=== PATIENT | female | born 1950 | race African-American/Black ===

== ENCOUNTER 2016-06-08 12:08 | Inpatient (IN) | payer MEDICARE, OTHER ==
[~2016-06-08] VITALS: Ht 165.1 cm; Wt 104.3 kg
[~2016-06-08 12:08] MED LIST: FOLIC ACID1 MG ORAL; FUROSEMIDE20 M1 ORAL; LYRICA75 M1 ORAL; MORPHINE IR15 MG ORAL; MORPHINE SULFAT60 M1 PO; MULTI-VITAMIN1 EACH PO; NIFEDIPINE ER30 MG ORAL; PANTOPRAZOLE SO40 MG ORAL; POTASSIUM CHLO20 ME3 PO; SIMVASTATIN40 MG ORAL; ZOLPIDEM TARTRA10 MG ORAL
[2016-06-08 12:46] LABS: APPEARANCE,URINE CLEAR; KETONES,URINE NEGATIVE (NEGATIVE); LEUKOCYTE ESTERASE ,URINE NEGATIVE (NEGATIVE); NITRITE,URINE NEGATIVE (NEGATIVE); PH,URINE 7 (4.5-8.0); PROTEIN,URINE NEGATIVE (NEGATIVE); UROBILINOGEN,URINE NORMAL MG/DL (0.0-1.0)
--- NOTE | 2016-06-08 12:50 | Diagnostic Imaging Report ---
Indications: Chest pain Technique: Portable AP chest Findings: Comparison: 06/26/15 Cardiac silhouette remains upper limits of normal in size. Pulmonary vasculature remains within normal limits. Lungs and pleura remain clear.. narrowing of the left glenohumeral joint again noted with marginal osteophyte formation. IMPRESSION: No evidence of acute cardiopulmonary disease, unchanged Left glenohumeral degenerative arthropathy
[2016-06-08 13:14] LABS: BASOPHILS % (AUTO) 0.8 % (0.0-2.0); EOSINOPHILS % (AUTO) 1.8 % (0.0-3.0); LYMPHOCYTES % (AUTO) 24.7 % (20.0-45.0); MEAN CORPUSCULAR HEMOGLOBIN 25.3 PG (27.0-31.0); MEAN CORPUSCULAR HGB CONC 30.3 G/DL (32.0-36.0); MEAN CORPUSCULAR VOLUME 84 FL (80-99); MEAN PLATELET VOLUME 7.7 FL (6.5-10.1); MONOCYTES % (AUTO) 5.6 % (1.0-10.0); NEUTROPHILS % (AUTO) 67.2 % (45.0-75.0); PLATELET COUNT 299 K/UL (150-450); RED BLOOD COUNT 4.14 M/UL (4.20-5.40); RED CELL DISTRIBUTION WIDTH 15.8 % (11.6-14.8); WHITE BLOOD COUNT 10.1 K/UL (4.8-10.8)
[2016-06-08 13:19] VITALS: BP 162/58
[2016-06-08 13:27] LABS: TROPONIN I < 0.30 ng/mL (<=0.30)
[2016-06-08 13:28] LABS: ALANINE AMINOTRANSFERASE 34 U/L (3-33); ALBUMIN/GLOBULIN RATIO 0.9 (1.0-2.7); ANION GAP 12 (5-15); ASPARTATE AMINO TRANSFERASE 43 U/L (5-40); CALCIUM 8.7 mg/dL (8.6-10.2); CARBON DIOXIDE 28 mEQ/L (20-30); CHLORIDE 100 mEQ/L (98-107); CREATININE 0.8 mg/dL (0.5-0.9); GLOMERULAR FILTRATION RATE > 60 mL/min (>60); HEMOLYSIS 29; POTASSIUM 4.3 mEQ/L (3.4-4.9); SODIUM 140 mEQ/L (135-145); TOTAL PROTEIN 7.5 g/dL (6.6-8.7)
[2016-06-08 13:39] LABS: CKMB < 1.5 ng/mL (< 3.8)
[2016-06-08 15:24] VITALS: BP_SYST 170; BP_SYST 178; BP_DIAS 67; BP_DIAS 73
[2016-06-08] MEDS ORDERED: Nitroglycerin Subl 0.4mg tab (Bottle Of 25) SL PRN (15:30)
--- NOTE | 2016-06-08 16:47 | Emergency Room Report ---
History of Present Illness General Chief Complaint: Chest Pain Source: Patient Present Illness HPI 66-year-old female presents ED complaining of chest pain. States chest pain started approximately one hour prior to arrival. Pressure-like, 7/10, nonradiating. No diarrhea relieving factors. Denies shortness of breath. Took nitroglycerin with some relief, given aspirin and nitroglycerin by EMS with chest pain improved. Denies any chest pain upon arrival. Notes extensive cardiac history including MA in the past. PMD is Dr. Gutierres. I fevers or chills. No aggravating or relieving factors. Denies any other associated symptoms Allergies: Coded Allergies: AMOXICILLIN (Verified Allergy, Mild, 06/26/15) HALOPERIDOL (Unverified Allergy, Unknown, 06/26/15) PENICILLIN G (Unverified Allergy, Unknown, 06/26/15) SULFA (SULFONAMIDE ANTIBIOTICS) (Unverified Allergy, Unknown, 06/26/15) Uncoded Allergies: PENECILLIN (Allergy, Unknown, 06/08/16) SULFA (Allergy, Unknown, 06/08/16) Patient History Past Medical History: HTN, MA Past Surgical History: none Pertinent Family History: none Social History: Denies: alcohol use, drug use, smoking Now: No Immunizations: UTD Reviewed Nursing Documentation: PMH: Agreed, PSxH: Agreed Nursing Documentation-PMH Past Medical History: No History, Except For Hx Cardiac Problems: Yes - MA year unspecified Hx Hypertension: Yes Hx Pacemaker: No - LUPUS Review of Systems All Other Systems: negative except mentioned in HPI Physical Exam Vital Signs Date Time Temp Pulse Resp B/P Pulse Ox O2 Delivery O2 Flow Rate FiO2 06/08/16 12:00 55 16 152/94 98 Room Air Sp02 EP Interpretation: reviewed, normal General Appearance: no apparent distress, alert, GCS 15, non-toxic Head: normocephalic, atraumatic Eyes: bilateral eye PERRL, bilateral eye normal inspection ENT: hearing grossly normal, normal pharynx, no angioedema, normal voice Neck: full range of motion, supple/symm/no masses Respiratory: chest non-tender, lungs clear, normal breath sounds, speaking full sentences Cardiovascular #1: regular rate, rhythm, no edema Cardiovascular #2: 2+ carotid (R), 2+ carotid (L), 2+ radial (R), 2+ radial (L) , 2+ dorsalis pedis (R), 2+ dorsalis pedis (L) Gastrointestinal: normal bowel sounds, non tender, soft, non-distended, no guarding, no rebound Rectal: deferred Genitourinary: normal inspection, no CVA tenderness Musculoskeletal: back normal, gait/station normal, normal range of motion, non- tender Neurologic: alert, oriented x3, responsive, motor strength/tone normal, sensory intact, speech normal Psychiatric: judgement/insight normal, memory normal, mood/affect normal, no suicidal/homicidal ideation Reflexes: 3+ bicep (R), 3+ bicep (L), 3+ tricep (R), 3+ tricep (L), 3+ knee (R) , 3+ knee (L) Skin: normal color, no rash, warm/dry, well hydrated Lymphatic: no adenopathy Medical Decision Making Diagnostic Impression: Primary Impression: ACS (acute coronary syndrome) ER Course Hospital Course 66-year-old female presents ED complaining of chest pain, improved with asa/ nitro Differential diagnoses include: MA/unstable angina, contusion, muscle strain, PTX, rib fracture Clinical course Patient placed on stretcher. on monitoring coordinator. After initial history and physical I ordered labs, EKG, chest x-ray, IVFs labs reviewed- no leukocytosis, hb/hct stable, electrolyts ok, troponins negative EKG-normal sinus rhythm, no acute ischemic changes Chest x-ray- no acute process On reassessment patient developed some chest pain. Repeat EKG showed no change. Patient was given nitroglycerin with some improvement Case discussed with Dr. Marinelli and he agreed to accept the patient to his service for further care and support I. I feel this is a highly complex case requiring extensive working including EKG/Rhythm strip, Xray/CT/US, Blood/urine lab work, repeat exams while in ED, and administration of strong opiates/narcotics for pain control, admission to hospital or close patient follow up. Diagnosis - ACS admitted to telemetry in serious condition Labs Test 06/08/16 12:35 06/08/16 12:50 Urine Color Yellow Urine Appearance Clear Urine pH 7 (4.5-8.0) Urine Specific [place] 1.005 (1.005-1.035) Urine Protein Negative (NEGATIVE) Urine Glucose (UA) Negative (NEGATIVE) Urine Ketones Negative (NEGATIVE) Urine Occult Blood Negative (NEGATIVE) Urine Nitrite Negative (NEGATIVE) Urine Bilirubin Negative (NEGATIVE) Urine Urobilinogen Normal MG/DL (0.0-1.0) Urine Leukocyte Esterase Negative (NEGATIVE) White Blood Count 10.1 K/UL (4.8-10.8) Red Blood Count 4.14 M/UL (4.20-5.40) Hemoglobin 10.5 G/DL (12.0-16.0) Hematocrit 34.6 % (37.0-47.0) Mean Corpuscular Volume 84 FL (80-99) Mean Corpuscular Hemoglobin 25.3 PG (27.0-31.0) Mean Corpuscular Hemoglobin Concent 30.3 G/DL (32.0-36.0) Red Cell Distribution Width 15.8 % (11.6-14.8) Platelet Count 299 K/UL (150-450) Mean Platelet Volume 7.7 FL (6.5-10.1) Neutrophils (%) (Auto) 67.2 % (45.0-75.0) Lymphocytes (%) (Auto) 24.7 % (20.0-45.0) Monocytes (%) (Auto) 5.6 % (1.0-10.0) Eosinophils (%) (Auto) 1.8 % (0.0-3.0) Basophils (%) (Auto) 0.8 % (0.0-2.0) Sodium Level 140 mEQ/L (135-145) Potassium Level 4.3 mEQ/L (3.4-4.9) Chloride Level 100 mEQ/L (98-107) Carbon Dioxide Level 28 mEQ/L (20-30) Anion Gap 12 (5-15) Blood Urea Nitrogen 5 mg/dL (7-23) Creatinine 0.8 mg/dL (0.5-0.9) Estimat Glomerular Filtration Rate > 60 mL/min (>60) Glucose Level 109 mg/dL (74-106) Calcium Level 8.7 mg/dL (8.6-10.2) Total Bilirubin 0.3 mg/dL (0.0-1.2) Aspartate Amino Transf (AST/SGOT) 43 U/L (5-40) Alanine Aminotransferase (ALT/SGPT) 34 U/L (3-33) Alkaline Phosphatase 107 U/L (35-104) Total Creatine Kinase 103 U/L (26-140) Creatine Kinase MB < 1.5 ng/mL (< 3.8) Creatine Kinase MB Relative Index Troponin I < 0.30 ng/mL (<=0.30) Pro-B-Type Natriuretic Peptide 150 pg/mL (0-125) Total Protein 7.5 g/dL (6.6-8.7) Albumin 3.7 g/dL (3.5-5.2) Globulin 3.8 g/dL Albumin/Globulin Ratio 0.9 (1.0-2.7) EKG Diagnostic Results Rate: normal Rhythm: NSR ST Segments: no acute changes ASA given to the pt in ED: No - given by ems Rhythm Strip Diag. Results EP Interpretation: yes Rhythm: NSR, no PVC's, no ectopy Chest X-Ray Diagnostic Results EP Interpretation: No Findings: no consolidation, no effusion, no pneumothorax, no acute cardiopulmonary disease Number of Views: 1 Last Vital Signs Date Time Temp Pulse Resp B/P Pulse Ox O2 Delivery O2 Flow Rate FiO2 06/08/16 15:26 178/73 06/08/16 15:24 60 11 97 Room Air Status: improved Disposition: ADMITTED INPATIENT Condition: Serious Referrals: PRETTY VENTURA (PCP) KASIE MAS M.D. Jun 08, 2016 16:47
[2016-06-08 17:27] VITALS: BP 160/65
--- NOTE | 2016-06-09 08:43 | Discharge Summary ---
Discharge Summary Hospital Course Date of Admission Jun 08, 2016 at 13:19 Date of Discharge Jun 08, 2016 at 19:00 Admitting Diagnosis ACS HPI Jacki Purvis is a 66 year old female who was admitted on Jun 08, 2016 at 13:19 for Acute Coronary Syndrome Hospital Course dc summary#[id number] Discharge Discharge Disposition Patient signed AMA Discharge Diagnoses: Discharge Instructions Discharge Instructions Special Instructions I have been assigned to complete a D/C Summary on this account. I was not involved in the patient management Mellisa Cevallos NP ([facility]) Jun 09, 2016 08:43
--- NOTE | 2016-06-10 00:39 | Discharge Summary 2 SIG ---
DATE OF ADMISSION: 06/08/2016 DATE OF SIGNING AGAINST MEDICAL ADVISE: 06/08/2016 REASON FOR HOSPITALIZATION: 66 years old female came to emergency room complaining of the chest pain. She stated that the pain started about 1 hour prior to arrival to the emergency room. She described chest pain as a pressure like, nonradiating , 7/10 on a scale of 1 to 10. She denied shortness of breath. She took nitroglycerin with some relief. She was given aspirin and nitroglycerin by paramedics and chest pain improved. She denied chest pain upon arrival. She had extensive cardiac history including myocardial infarction in the past. Denied fever. Denied chills. No nausea. No abdominal pain. No diarrhea. History of hypertension and myocardial infarction. Workup in the emergency room revealed negative troponin and no leukocytosis. Stable hemoglobin and hematocrit. Stable electrolytes. EKG showed normal sinus rhythm. No acute ischemic changes. The patient was placed on blood bank laboratory professional. Chest x-ray revealed no acute cardiopulmonary disease. During reassessment by ED doctor, the patient again developed some chest pain. Repeated EKG again revealed no ischemic changes. The patient was given nitroglycerin on reassessment with some improvement. Due to the prior history of myocardial infarction and hypertension, the patient was admitted to telemetry for further management. ADMITTING DIAGNOSES: 1. Chest pain, 2. Rule out acute coronary syndrome. 3. Hypertension. 4. History of myocardial infarction. HOSPITAL STAY: The patient was brought on the telemetry floor at 1900 hours. The patient decided to sign against medical advice. was at the bedside. The patient stated that she wants to go to [facility]. She did not want to wait for the doctor to call back. The risks and consequences of signing against medical advice were described to the patient. The patient nevertheless signed the form. At the time of signing the form, she denied chest pain, shortness of breath, and was symptoms free. The patient left after signing against medical advice form , accompanied by her . FINAL DIAGNOSES: 1. Chest pain, 2. Rule out acute coronary syndrome. 2. Hypertension. 3. History of myocardial infarction. Pagiel Shechter, M.D. I have been assigned to dictate discharge summary on this account and I was not involved in the patient's management. Mellisa HobbsRochester General Hospitalkarl N.PMilli DR: OSBALDO JOB#: [id number] CC: ROXANN
--- NOTE | 2016-06-10 23:36 | Cardiology Report ---
APPROVED REPORT EKG Measurement Heart [id number] Marked sinus bradycardia Minimal voltage criteria for LVH, may be normal variant Cannot rule out Anterior infarct, age undetermined Abnormal ECG
== END 2016-06-08 19:00 | disposition left against medical advice (07) | DRG 311 ==
LOC: EDBD 12:08 → EMR 13:15 → 2E 13:19 → EMR 17:28
DX: I24.9 Acute ischemic heart disease, unspecified (principal); M32.9 Systemic lupus erythematosus, unspecified; R07.9 Chest pain, unspecified; I10 Essential (primary) hypertension; I25.2 Old myocardial infarction; Z88.1 Allergy status to other antibiotic agents; Z88.0 Allergy status to penicillin; Z88.2 Allergy status to sulfonamides; Z88.8 Allergy status to other drugs, medicaments and biological substances
CPT/HCPCS: 36415; 71010; 80053; 81003; 82550; 82553; 83880; 84484; 85025; 93005